=== PATIENT | female | born 1995 | race Caucasian/White ===

== ENCOUNTER 2017-01-27 18:08 | Inpatient (IN) | payer OTHER ==
[~2017-01-27] VITALS: Ht 170.2 cm; Wt 74.4 kg
[2017-01-27 18:14] VITALS: BP 133/88
--- NOTE | 2017-01-27 20:04 | NUR ---
PT SENT TO CT
--- NOTE | 2017-01-27 21:03 | NUR ---
PT TAKEN TO BED 4
--- NOTE | 2017-01-27 21:04 | NUR ---
21 Y/O F W/C/O R LOWER ABD PAIN X TODAY. STATES PAIN GET WORSE WHEN CHANGING POSITION. STATES TO BE NAUSEATED BUT HASNT VOMIT. ER MADE AWARE.
[2017-01-27] MEDS ORDERED: NACL 0.9% 1,000 ML IV ONE (21:13)
[2017-01-27] MEDS ORDERED: KETOROLAC 30 MG/ML VIAL IVP ONE (21:15)
[2017-01-27] MEDS ORDERED: ONDANSETRON 4 MG/2 ML VIAL IVP ONE (21:15)
[2017-01-27 21:36] LABS: HEMATOCRIT 43.7 % (36-48); HEMOGLOBIN 14.4 g/dL (12.0-16.0); MEAN CORPUSCULAR HEMOGLOBIN 27 pg (27-31); MEAN CORPUSCULAR HGB CONC 33 g/dL (33-37); MEAN CORPUSCULAR VOLUME 82 fL (80-94); PLATELET COUNT (AUTO) 263 K/uL (140-450); RED BLOOD CELL COUNT(AUTO) 5.34 MIL/uL (4.20-5.40); RED CELL DISTRIBUTION WIDTH 12.9 % (11.6-13.7); WHITE BLOOD COUNT (AUTO) 17.4 K/uL (4.8-10.8)
[2017-01-27] MEDS ORDERED: metroNIDAZOLE 500 MG/NS PREMIX 100 ML IV ONE (21:45)
[2017-01-27 21:55] LABS: ANION GAP 14.4 (8-16); CALCIUM 9.7 mg/dL (8.5-10.1); CARBON DIOXIDE 26.5 mmol/L (21-32); CREATININE 0.9 mg/dL (0.6-1.3); POTASSIUM 3.9 mmol/L (3.5-5.1)
[2017-01-27 22:01] LABS: ALBUMIN 4.1 g/dL (3.4-5.0); TOTAL BILIRUBIN 0.6 mg/dL (0.0-1.0); TOTAL PROTEIN, SERUM 8.9 g/dL (6.4-8.2)
[2017-01-27 22:08] LABS: BAND % (MANUAL) 6 % (0-8); EOSINOPHILS % (MANUAL) 2 % (0-4); LYMPHOCYTES % (MANUAL) 13 % (20-46); METAMYELOCYTES % 1 % (0-0); MONOCYTES % (MANUAL) 4 % (5-12); NEUTROPHILS % (MANUAL) 74 (43-65); PLATELET ESTIMATE ADEQUATE
--- NOTE | 2017-01-27 22:23 | NUR ---
LAST TIME PT AT WAS 13:00 TODAY SANDWICH WITH DRINK.
[2017-01-27] MEDS ORDERED: ACETAMINOPHEN 325 MG TAB PO PRN (23:00)
[2017-01-27] MEDS ORDERED: MORPHINE SULFATE 2 MG/ML SYR IVP PRN (23:00)
[2017-01-27] MEDS ORDERED: ZOLPIDEM 5 MG TAB PO PRN (23:00)
[2017-01-27] MEDS ORDERED: ONDANSETRON 4 MG/2 ML VIAL IVP PRN (23:00)
--- NOTE | 2017-01-27 23:02 | NUR ---
Patient will be admitted to care of DR WAGONER. Admited to TELEMETRY. Will go to [id number] . Belongings list completed. Report to LEE DANIELS.
--- NOTE | 2017-01-27 23:06 | NUR ---
PT TRASFER TO TELEMETRY FLOOR VIA [facility]. ACCOMPANIED BY RN AND EMT. NO S/S OF DISTRESS NOTED DURING TRASFER.
[2017-01-27 23:40] VITALS: BP 101/53
[2017-01-27 23:50] LABS: APPEARANCE,URINE CLEAR (CLEAR); BILIRUBIN,URINE NEGATIVE (NEGATIVE); BLOOD, URINE NEGATIVE (NEGATIVE); COLOR,URINE YELLOW (YELLOW); LEUKOCYTE ESTERASE ,URINE NEGATIVE (NEGATIVE); NITRITE, URINE NEGATIVE (NEGATIVE); PH,URINE 7.5 (5.0-9.0); PROTEIN,URINE NEGATIVE (NEGATIVE); UGLUCOSE NEGATIVE (NEGATIVE); UROBILINOGEN,URINE 0.2 EU/dL (0.2 - 1)
[2017-01-28] LABS: PARTIAL THROMBOPLASTIN TIME 27.2 secs (22-35.6); PROTHROMBIN TIME 9.6 secs (10.8-13.4)
--- NOTE | 2017-01-28 | NUR ---
ADMITTED 21 Y.O.F FROM ER.PLACED ON BED.ORIENTED TO ROOM.CALL SYSTEM EXPLAINED AND IN REACH.TELE APPLIED AND SHOWING SR/JUNCTIONAL.IVF INFUSING WELL VIA IV LINE IN RT.AC W/#20G.SKIN INTACT.DENIED ANY PAIN AT TIME OF ADMISSION.PLAN OF CARE DISCUSSED W/PT.VERBALIZED UNDERSTANDING.WILL CONTINUE MONITORING.
[2017-01-28 00:10] LABS: CHOL/HDL RATIO 3.8 (1-4.5)
[2017-01-28] MEDS: NACL 0.9% 1,000 ML IV SCH ×3 (00:14→21:56)
[2017-01-28 00:36] LABS: FREE T4 (FREE THYROXINE) 1.09 ng/dL (0.76-1.46); THYROID STIMULATING HORMONE 2.59 uIU/mL (0.34-3.76)
--- NOTE | 2017-01-28 01:00 | NUR ---
NOTIFY RESIDENT OF PT'S HR OF SR,JUNCTIONAL.SHE ORDERED EKG.IS DONE AND IS IN PT'S CHART.VS STABLE.
[2017-01-28 04:00] VITALS: BP 96/53
--- NOTE | 2017-01-28 04:00 | NUR ---
RECD. PATIENT FOR CONTINUITY OF CARE FROM CHARGE NURSE JEREMIAH. AWAKE, A/OX4. RESPIRATION EVEN AND UNLABORED. IV OF NS AT 80 ML/HR INFUSING, RIGHT AC G 20. PAIN IN THE ABDOMEN DESCRIBED "LITTLE", INSTRUCTED TO CALL IF PAIN IN THE ABDOMEN INCREASES. VERBALIZED UNDERSTANDING.
[2017-01-28 06:39] LABS: BASOPHILS # (AUTO) 0.1 K/uL (0.00-0.22); BASOPHILS % (AUTO) 0.6 % (0.0-2.0); EOSINOPHILS # (AUTO) 0.2 K/uL (0-0.4); EOSINOPHILS % (AUTO) 1.5 % (0.0-4.0); HEMATOCRIT 37.7 % (36-48); HEMOGLOBIN 12.7 g/dL (12.0-16.0); LYMPHOCYTES # (AUTO) 2.2 K/uL (2.5-16.5); LYMPHOCYTES % (AUTO) 16.1 % (20.5-51.1); MEAN CORPUSCULAR HEMOGLOBIN 28 pg (27-31); MEAN CORPUSCULAR HGB CONC 34 g/dL (33-37); MEAN CORPUSCULAR VOLUME 83 fL (80-94); MONOCYTES # (AUTO) 1.7 K/uL (0.8-1.0); MONOCYTES % (AUTO) 12.9 % (1.7-9.3); NEUTROPHILS # (AUTO) 9.3 K/uL (1.8-7.7); NEUTROPHILS % (AUTO) 68.9 % (42.2-75.2); PLATELET COUNT (AUTO) 216 K/uL (140-450); RED BLOOD CELL COUNT(AUTO) 4.56 MIL/uL (4.20-5.40); RED CELL DISTRIBUTION WIDTH 12.9 % (11.6-13.7); WHITE BLOOD COUNT (AUTO) 13.5 K/uL (4.8-10.8)
--- NOTE | 2017-01-28 06:51 | NUR ---
Patient's Plan of Care was discussed and reviewed with SUPERVISOR TELLERS: ALOK SOUSA.
--- NOTE | 2017-01-28 06:52 | NUR ---
PT SLEPT WELL.NO C/O PAIN AND/OR DISCOMFORT.HR IS SR.CALL LIGHT IN REACH.IVF IS IN PROGRESS.
[2017-01-28 07:09] LABS: ANION GAP 11.8 (8-16); CALCIUM 8.9 mg/dL (8.5-10.1); CARBON DIOXIDE 25.3 mmol/L (21-32); CREATININE 0.8 mg/dL (0.6-1.3); POTASSIUM 4.1 mmol/L (3.5-5.1)
[2017-01-28 07:17] LABS: PHOSPHORUS 3.5 mg/dL (2.5-4.9)
[2017-01-28] MEDS ORDERED: metroNIDAZOLE 500 MG/NS PREMIX 100 ML IV SCH (07:42)
[2017-01-28 08:00] VITALS: BP 102/62
--- NOTE | 2017-01-28 08:00 | NUR ---
RECEIVED REPORT FROM JEREMIAH HOWARD FOR CONTINUITY OF CARE. PATIENT AWAKE , A/OX4 NO S/S OF RESP DISTRESS NOTED ABLE TO MAKE NEEDS KNOWN . DENIES ANY PAIN. IV SITE RIGHT AC GAUGE 20 INTACT AND PATENT. IVF INFUSING WELL. PLAN OF CARE DISCUSSED WITH THE PATIENT VITALS STABLE WILL CONTINUE TO MONITOR.
--- NOTE | 2017-01-28 08:58 | NUR ---
PATIENT HAS BEEN SCREENED AND CATEGORIZED MODERATE NUTRITION RISK. PATIENT WILL BE SEEN WITHIN 3-5 DAYS OF ADMISSION. 01/30/17-02/01/[address]
[2017-01-28] MEDS: cefTRIAXone 2,000 MG in DEXTROSE 5% 100 ML IV SCH (09:04)
[2017-01-28] MEDS: LACTOBACILLUS RHAMNOSUS GG 1 EACH CAP PO SCH ×3 (09:45→21:55)
--- NOTE | 2017-01-28 11:25 | NUR ---
DR OCAMPO VISITED PATIENT ,NEW ORDER TO HAVE SURGERY WITH IN 30 MIN. CONSENT SIGNED BY THE PATIENT.
[2017-01-28] MEDS ORDERED: GENTAMICIN 80 MG/2 ML VIAL ONE (11:28)
[2017-01-28] MEDS ORDERED: BUPIVACAINE-MPF/EPI 0.5% 30 ML VIAL INJ ONE (11:28)
--- NOTE | 2017-01-28 11:46 | NUR ---
CM NOTE PER SURGERY DRAMA TEACHER ABDIRAHMAN MOORE WHO IS COVERING FOR POWER NUT RUNNER OPERATOR BRANDON, SEND REVIEWS TO [facility]. FAXED INITIAL REVIEW TO [facility] [phone] # [phone] JASPAL NEVAREZ EXT [phone]
--- NOTE | 2017-01-28 11:52 | NUR ---
PATIENT LEFT TO OR ,ACCOMPANY WITH OR CREW STABLE CONDITION.
[2017-01-28] MEDS ORDERED: PROPOFOL 200 MG/20 ML VIAL IV ONE (12:02)
[2017-01-28] MEDS ORDERED: DEXAMETHASONE 4 MG/ML VIAL IVP ONE (12:02)
[2017-01-28] MEDS ORDERED: ONDANSETRON 4 MG/2 ML VIAL IVP ONE ×2 (12:02)
[2017-01-28] MEDS ORDERED: NEOSTIGMINE 1:1000 10 MG/10 ML VIAL IM ONE (12:02)
[2017-01-28] MEDS ORDERED: KETOROLAC 30 MG/ML VIAL IVP ONE (12:02)
[2017-01-28] MEDS ORDERED: DESFLURANE 240 ML BTL INH ONE (12:02)
[2017-01-28] MEDS ORDERED: SUCCINYLCHOLINE CHLORIDE 200 MG/10 ML VIAL IV ONE (12:02)
[2017-01-28] MEDS ORDERED: GLYCOPYRROLATE 0.2 MG/ML VIAL IV ONE (12:02)
[2017-01-28] MEDS ORDERED: ROCURONIUM 50 MG/5 ML VIAL IV ONE (12:02)
[2017-01-28] MEDS ORDERED: fentaNYL 0.05 MG/ML VIAL ONE (12:11)
[2017-01-28] MEDS ORDERED: HYDROmorphone PFS 2 MG/ML SYR ONE (12:11)
[2017-01-28] MEDS ORDERED: ONDANSETRON 4 MG/2 ML VIAL IVP PRN (12:30)
[2017-01-28] MEDS ORDERED: HYDROmorphone 1 MG/ML AMP IVP PRN (12:30)
[2017-01-28] MEDS: HYDROmorphone PFS 2 MG/ML SYR ONE ×2 (14:02→14:12)
--- NOTE | 2017-01-28 14:54 | NUR ---
BACK FROM RECOVERY ,SLEEPY BUT EASILY AWAKE INCISION SITE CLEAN AND DRY VITALS STABLE.
[2017-01-28 15:00] VITALS: BP 116/64
[2017-01-28 15:30] VITALS: BP 112/60
[2017-01-28] MEDS ORDERED: LORATADINE 10 MG TAB PO SCH (16:02)
[2017-01-28 16:08] VITALS: BP 104/66
[2017-01-28] MEDS: metroNIDAZOLE 500 MG/NS PREMIX 100 ML IV SCH ×2 (16:15→21:55)
--- NOTE | 2017-01-28 18:31 | NUR ---
AMBULATE TO BATHROOM , VOIDING CLEAR YELLOW URINE ,C/O NAUSEA MEDICATED WITH ZOFRAN
--- NOTE | 2017-01-28 19:29 | NUR ---
ATE DINNER TOLERATED WELL . ENDORSE THE CARE TO JESUS HOWARD
--- NOTE | 2017-01-28 19:30 | NUR ---
RECEIVED REPORT FROM DAY RN FOR CONTINUITY OF CARE. PATIENT IS A&OX4, DISCUSSED PLAN OF CARE WITH PATIENT, VERBALIZED UNDERSTANDING. SHIFT ASSESSMENT DONE, VS TAKEN, STABLE. NO S/S OF RESPIRATORY DISTRESS NOTED ON ROOM AIR. PATIENT STATES SLIGHT ABDOMINAL PAIN, WILL MEDICATE ORDERED. 3 SMALL ABDOMINAL INCISIONS NOTED PRINCIPAL SECRETARY. IV TO RT AC PATENT AND INFUSING FLUIDS WELL. SAFETY PRECAUTIONS ENFORCED, CALL LIGHT WITHIN REACH. FAMILY MEMBER AT BEDSIDE, WILL CONTINUE TO MONITOR.
[2017-01-28 20:00] VITALS: BP 106/67
--- NOTE | 2017-01-28 20:39 | NUR ---
PT C/O ABDOMINAL PAIN, MEDICATED PER MD ORDER. PATIENT AMBULATED IN HALLWAY X1, TOLERATED WELL. RETURNED TO BED AND MADE COMFORTABLE. CALL LIGHT WITHIN REACH. WILL CONTINUE TO MONITOR.
--- NOTE | 2017-01-28 21:56 | NUR ---
DUE MEDICATIONS ADMINISTERED, TOLERATED WELL. PATIENT RESTING IN BED, NO S/S OF DISTRESS NOTED. CALL LIGHT WITHIN REACH.
[2017-01-28] MEDS: HYDROcodone/APAP 5/325 MG 1 TAB TAB PO PRN (23:44)
--- NOTE | 2017-01-28 23:44 | NUR ---
PT AMBULATED TO RESTROOM, C/O ABDOMINAL PAIN MEDICATED PER MD ORDER. VITAL SIGNS STABLE. CALL LIGHT WITHIN REACH.
[2017-01-29] VITALS: BP 119/71
--- NOTE | 2017-01-29 02:39 | NUR ---
PATIENT IS ASLEEP AT THIS TIME, NO S/S OF DISTRESS OR DISCOMFORT. CALL LIGHT WITHIN REACH, WILL CONTINUE TO MONITOR.
--- NOTE | 2017-01-29 04:22 | NUR ---
PATIENT IS ASLEEP AT THIS TIME, NO S/S OF DISTRESS OR DISCOMFORT NOTED. WILL CONTINUE TO MONITOR.
[2017-01-29] MEDS: HYDROcodone/APAP 5/325 MG 1 TAB TAB PO PRN ×2 (04:59→09:26)
[2017-01-29] MEDS: metroNIDAZOLE 500 MG/NS PREMIX 100 ML IV SCH ×2 (04:59→13:00)
[2017-01-29 06:11] LABS: BASOPHILS # (AUTO) 0.2 K/uL (0.00-0.22); BASOPHILS % (AUTO) 1.3 % (0.0-2.0); EOSINOPHILS # (AUTO) 0.2 K/uL (0-0.4); EOSINOPHILS % (AUTO) 1.5 % (0.0-4.0); HEMATOCRIT 35.9 % (36-48); HEMOGLOBIN 11.8 g/dL (12.0-16.0); LYMPHOCYTES # (AUTO) 1.6 K/uL (2.5-16.5); LYMPHOCYTES % (AUTO) 12.5 % (20.5-51.1); MEAN CORPUSCULAR HEMOGLOBIN 28 pg (27-31); MEAN CORPUSCULAR HGB CONC 33 g/dL (33-37); MEAN CORPUSCULAR VOLUME 84 fL (80-94); MONOCYTES % (AUTO) 7.6 % (1.7-9.3); NEUTROPHILS # (AUTO) 9.8 K/uL (1.8-7.7); NEUTROPHILS % (AUTO) 77.1 % (42.2-75.2); PLATELET COUNT (AUTO) 217 K/uL (140-450); RED BLOOD CELL COUNT(AUTO) 4.29 MIL/uL (4.20-5.40); RED CELL DISTRIBUTION WIDTH 12.7 % (11.6-13.7)
--- NOTE | 2017-01-29 06:16 | NUR ---
PATIENT AMBULATED TO RESTROOM, VOIDED. NO S/S OF DISTRESS WITH AMBULATING. WILL CONTINUE TO MONITOR.
[2017-01-29 06:55] LABS: ANION GAP 12.6 (8-16); CALCIUM 8.9 mg/dL (8.5-10.1); CARBON DIOXIDE 25.1 mmol/L (21-32); CREATININE 0.7 mg/dL (0.6-1.3); POTASSIUM 4.7 mmol/L (3.5-5.1)
[2017-01-29 06:59] LABS: MAGNESIUM 1.8 mg/dL (1.8-2.4); PHOSPHORUS 3.4 mg/dL (2.5-4.9)
[2017-01-29] MEDS ORDERED: DOCU-67 PO (06:59)
[2017-01-29] MEDS ORDERED: IBUP-2213 PO (06:59)
[2017-01-29] MEDS ORDERED: ACET-2863 PO (06:59)
[2017-01-29 07:02] LABS: WHITE BLOOD COUNT (AUTO) 12.8 K/uL (4.8-10.8)
--- NOTE | 2017-01-29 07:30 | NUR ---
ENDORSED PATIENT TO DAY RN FOR CONTINUITY OF CARE, PATIENT IS IN STABLE CONDITION.
--- NOTE | 2017-01-29 07:31 | NUR ---
PT AWAKE AND ALERT, NO SIGNS OF ACUTE DISTRESS. BREATHING EVEN AND UNLABORED BILATERALLY. SKIN INTACT WITH 3 SMALL INCISIONS ON ABDOMEN S/P LAP APPENDECTOMY, CLOSED WITH GLUE. C/O PAIN 8/10 IN ABDOMEN, WILL MEDICATE. CONTINENT TO BOWEL AND BLADDER. IV PATENT AND INFUSING WITH NO REDNESS AROUND INSERTION SITE. PT AMBULATORY WITH BRP, BED IN LOW POSITION WITH BILATERAL HALF SIDE RAILS UP, CALL LIGHT WITHIN REACH. RE-ORIENTED PATIENT TO UNIT AND HOSPITAL.
--- NOTE | 2017-01-29 07:45 | NUR ---
RECEIVED NEW ORDER FOR DISCHARGE, NOTED, WILL CARRY OUT.
[2017-01-29 08:00] VITALS: BP 112/75
[2017-01-29] MEDS: LACTOBACILLUS RHAMNOSUS GG 1 EACH CAP PO SCH ×3 (08:00→12:00)
--- NOTE | 2017-01-29 08:40 | NUR ---
PER DR NAVARRETE, ONLY GIVE 1 DOSE OF CULTURELLE AT 0900, HOLD THE 0800 DOSE, NOTED, WILL CARRY OUT.
[2017-01-29] MEDS: cefTRIAXone 2,000 MG in DEXTROSE 5% 100 ML IV SCH (08:54)
[2017-01-29] MEDS ORDERED: LORATADINE 10 MG TAB PO SCH (09:00)
[2017-01-29 09:47] LABS: T4 (THYROXINE) 9.7 ug/dL (4.5-12.0)
[2017-01-29] MEDS ORDERED: ONDA4TAB PO (11:29)
[2017-01-29] MEDS: NACL 0.9% 1,000 ML IV SCH (12:27)
--- NOTE | 2017-01-29 13:42 | NUR ---
PULLED OUT CULTURELLE AND FLAGYL FROM [facility] TO GIVE TO PATIENT ORDERED, PT REFUSED CULTURELLE AND FLAGYL HOWEVER I ALREADY OPENED THE FLAGYL. CALLED PHARMACY AND PER PHARMACY DO NOT RETURN FLAGYL IN [facility], ONLY WASTE IN RECYCLE BIN AND THEY WILL CREDIT THE PATIENT'S ACCOUNT MANUALLY. WILL RETURN THE CULTURELLE TO THE [facility].
--- NOTE | 2017-01-29 14:50 | NUR ---
PT AWAKE AND ALERT, NO SIGNS OF ACUTE DISTRESS. EDUCATED PATIENT ON NEW PRESCRIPTIONS, WOUND CARE S/P LAPAROSCOPIC APPENDECTOMY, SIGNS AND SYMPTOMS OF WORSENING CONDITION AND INFECTION AND FOLLOW UP WITH PCP WITHIN 5 DAYS OF DISCHARGE FOR A S/P HOSPITAL DISCHARGE OFFICE VISIT. PT VERBALIZED UNDERSTANDING. CUT OFF WRIST BANDS AND D/C'D IV. WALKED PT OUT OF UNIT TO [facility], LEFT TO GO HOME VIA PRIVATE AUTO.
[2017-02-02 12:21] LABS: HEMOGLOBIN A1C 5.4 % (4.8-5.6)
== END 2017-01-29 14:50 | disposition home or self-care (01) | DRG 343 ==
LOC: MED 18:08 → MTU 22:57
PROVIDERS: ADMIT Family Medicine; ATTEND Family Medicine
PROC: 0DTJ4ZZ Resection of Appendix, Percutaneous Endoscopic Approach (ICD-10-PCS; principal; 2017-01-28 12:00)
DX: K35.80 Unspecified acute appendicitis (principal); E78.5 Hyperlipidemia, unspecified; F12.90 Cannabis use, unspecified, uncomplicated
CPT/HCPCS: 36415; 71010; 80048; 80053; 81003; 81025; 82374; 83036; 83735; 84100; 84436; 84439; 84443; 84479; 84702; 85025; 85610; 85730; 87040; 87081; 93005; 96365; 96375; 99285; J0330; J0696; J1100; J1170; J1580; J1885; J2270; J2405; J2704; J2710; J3010; J3490; J7030; J7060; Q0092